=== PATIENT | male | born 1980 | race Caucasian/White ===

== ENCOUNTER 2018-07-24 06:41 | Emergency (ER) | payer OTHER ==
[~2018-07-24] VITALS: Ht 185.4 cm; Wt 92.1 kg
[2018-07-24 06:56] VITALS: BP 130/80
== END 2018-07-24 07:49 | disposition home or self-care (01) ==
LOC: ED 06:41
DX: N23 Unspecified renal colic (principal); Z90.89 Acquired absence of other organs